=== PATIENT | female | born 1995 | race Caucasian/White ===

== ENCOUNTER 2017-03-25 19:29 | Emergency (ER) | payer OTHER ==
[2017-03-25 19:37] VITALS: BP 128/82; PULSE 87; RESP 18; TEMP 98.1
--- NOTE | 2017-03-25 19:54 | ED ---
Eye Problem HPI - General Chief complaint: Eye Problems Stated complaint: Eye Problem Time Seen by Provider: 03/25/17 19:38 Source: patient, RN notes reviewed Mode of arrival: ambulatory Limitations: no limitations - History of Present Illness Initial comments: 21-year-old female presents to the emergency department with chief complaint of right eye irritation. Patient states that her eyes been red for the past few days. Patient states she started tonight doctor yesterday. Patient states patient has low blurring of vision to the eye so she thought that she should be seen. Patient states she hasn't had any other symptoms. Patient denies any purulent type drainage. Patient states she does not wear contacts. Patient states she was concerned due to the eye irritation so she thought that she should be evaluated. Patient denies any recent fever, chills, shortness of breath, chest pain, back pain, abdominal pain, nausea vomiting, numbness or tingling, dysuria or hematuria, constipation or diarrhea, headaches, any other current symptoms. - Related Data Allergies Allergy/AdvReac Type Severity Reaction Status Date / Time No Known Allergies Allergy Verified 03/25/17 19:37 Review of Systems ROS Statement: Those systems with pertinent positive or pertinent negative responses have been documented in the HPI. ROS Other: All systems not noted in ROS Statement are negative. Past Medical History Past Medical History: No Reported History History of Any Multi-Drug Resistant Organisms: None Reported Past Surgical History: Tonsillectomy Past Psychological History: No Psychological Hx Reported Smoking Status: Never smoker Past Alcohol Use History: Occasional Past Drug Use History: None Reported General Exam Limitations: no limitations General appearance: alert, in no apparent distress Head exam: Present: atraumatic, normocephalic, normal inspection Eye exam: Present: EOMI, conjunctival injection (To the right eye), other ( Patient does have almost irregularity to the right pupil. ). Absent: scleral icterus, periorbital swelling, periorbital tenderness ENT exam: Present: normal exam, mucous membranes moist Neck exam: Present: normal inspection. Absent: tenderness, meningismus, lymphadenopathy Respiratory exam: Present: normal lung sounds bilaterally. Absent: respiratory distress, wheezes, rales, rhonchi, stridor Cardiovascular Exam: Present: regular rate, normal rhythm, normal heart sounds. Absent: systolic murmur, diastolic murmur, rubs, gallop, clicks Neurological exam: Present: alert, oriented X3 Psychiatric exam: Present: normal affect, normal mood Skin exam: Present: warm, dry, intact, normal color. Absent: rash Course Vital Signs 03/25/17 19:35 Temperature 98.1 F Pulse Rate 87 Respiratory 18 Rate Blood Pressure 128/82 O2 Sat by Pulse 98 Oximetry - Reevaluation(s) Reevaluation #1: 03/25/17 19:58 With Dereje-Pen pressure right eye is 14 pressure left eye is 11 Medical Decision Making - Medical Decision Making 21-year-old female presents with what appears to be a uveitis to the right eye. This time patient is already on eye drops for concern for possible eye infection. This time we discussed she needs to have close follow-up with the track dresser for further evaluation she has had an appointment for the morning. Patient was tested in the eyes and does appear to be appropriate to the right eye with minimal deficit. At this time we did discuss close follow- up with the doctor. Pressures were measured which aren't within normal limits. At this time the patient will be discharged home. Disposition Clinical Impression: Uveitis Disposition: HOME SELF-CARE Condition: Stable Instructions: Iritis (ED) Additional Instructions: Please use medication as discussed. Please follow up with family doctor if symptoms have not improved over the next two days. Please return to the emergency room if your symptoms increase or worsen or for any other concerns. Referrals: Olga Lidia Card DO [Primary Care Provider] - 1-2 days Willy Locke MD [STAFF PHYSICIAN] - 1-2 days Time of Disposition: 19:58
== END 2017-03-25 20:01 | disposition home or self-care (01) ==
LOC: EC 19:29
DX: H20.9 Unspecified iridocyclitis (principal)
CPT/HCPCS: 99283